=== PATIENT | male | born 1995 | race Hispanic/Latino ===

== ENCOUNTER 2019-08-01 18:28 | Observation (INO) | payer SELFPAY ==
[2019-08-01 19:16] LABS: Absolute Lymphocytes (CBC) 3.9 K/uL (0.7-4.9); Basophils % 1.1 % (0-1.3); Hematocrit 45.7 % (39.6-49.0); Lymphocytes % 44.3 % (15.3-44.8); MPV 11.4 fL (7.6-11.3); RBC Red Blood Cell Count 5.52 M/uL (4.33-5.43)
[2019-08-01 19:19] LABS: Protime INR 1.18
[2019-08-01 19:32] LABS: ALT/SGPT 160 U/L (12-78); AST/SGOT 76 U/L (15-37); Albumin 3.7 g/dL (3.4-5.0); Alkaline Phosphatase 100 U/L (45-117); BUN Blood Urea Nitrogen 14 mg/dL (7-18); Bicarbonate 27 mmol/L (21-32); Bilirubin Direct 0.2 mg/dL (0-0.2); Bilirubin Total 0.6 mg/dL (0.2-1.0); Glucose Level 342 mg/dL (74-106); Magnesium 1.8 mg/dL (1.8-2.4); NT PRO-BNP 30 pg/mL (<125); Potassium 3.5 mmol/L (3.5-5.1); Sodium Level 134 mmol/L (136-145); Troponin (Emerg Dept Use Only) < 0.02 ng/mL (0.0-0.045)
--- NOTE | 2019-08-01 20:02 | RAD REPORT ---
EXAM DESCRIPTION: [facility] Single View08/01/2019 7:14 pm CLINICAL HISTORY: Chest pain COMPARISON: none FINDINGS: The lungs appear clear of acute infiltrate. The heart is normal size IMPRESSION: No acute abnormalities displayed
[2019-08-01] MEDS ORDERED: NA CHLORIDE 0.9% 1,000 ML ONE (20:42)
--- NOTE | 2019-08-01 20:58 | RAD REPORT ---
EXAM DESCRIPTION: CT - Chest For Pe Angio - 08/01/2019 8:41 pm CLINICAL HISTORY: Chest pain COMPARISON: None. TECHNIQUE: Dynamically enhanced axial 3 mm thick images of the chest were obtained during administra tion of <100> mL Isovue 370 IV contrast. Coronal and oblique reconstruction images were generated and reviewed. Exam utilizes a protocol for optimal evaluation of pulmonary arterial tree. Maximum intensity projections 3D imaging was utilized All CT scans are performed using dose optimization technique as appropriate and may include automated exposure control or mA/KV adjustment according to patient size. FINDINGS: A pulmonary embolus is not seen. A thoracic aortic aneurysm is not noted. A pleural effusion is not seen. A pericardial effusion is not seen. A lung consolidation is not present. Fatty liver IMPRESSION: Negative for a pulmonary embolism.
[2019-08-01 21:09] LABS: Blood Morphology Comment NOT SEEN (NOT SEEN); Platelet Estimate DECR; Urine White Blood Cell Casts OK
--- NOTE | 2019-08-01 21:12 | ER ---
Nurse's Notes [facility] Name: Carroll Johnson Age: 24 yrs Sex: Male : 1995 Arrival Date: 08/01/2019 Time: 18:33 Bed 4 Private MD: None, None Diagnosis: Tachycardia, unspecified Presentation: 08/01 18:35 Presenting complaint: Patient states: tonsils swollen and then started having chest sv pressure, bilateral arm numbness since Sunday. Transition of care: patient was not received from another setting of care. Onset of symptoms was July 28, 2019. Risk Assessment: Do you want to hurt yourself or someone else? Patient reports no desire to harm self or others. Initial Sepsis Screen: Does the patient meet any 2 criteria? No. Patient's initial sepsis screen is negative. Does the patient have a suspected source of infection? No. Patient's initial sepsis screen is negative. Care prior to arrival: None. 18:35 Method Of Arrival: Ambulatory sv 18:35 Acuity: KURT 2 sv Historical: - Allergies: 18:37 No Known Allergies; sv - PMHx: 18:37 Diabetes - NIDDM; sv - PSHx: 18:37 Hernia repair; sv - Immunization history:: Adult Immunizations up to date. - Social history:: Smoking status: unknown. - Ebola Screening: : Patient negative for fever greater than or equal to 101.5 degrees Fahrenheit, and additional compatible Ebola Virus Disease symptoms. Screenin:08 Abuse screen: Denies threats or abuse. Denies injuries from another. Nutritional aj1 screening: No deficits noted. Tuberculosis screening: No symptoms or risk factors identified. 19:09 Fall Risk IV access (20 points). Ambulatory Aid- None/Bed Rest/Nurse Assist (0 pts). jd3 Gait- Normal/Bed Rest/Wheelchair (0 pts) Mental Status- Oriented to own ability (0 pts). Total Nickerson Fall Scale indicates No Risk (0-24 pts). Assessment: 18:45 General: Appears in no apparent distress. comfortable, Behavior is calm, cooperative, aj1 appropriate for age. Pain: Complains of pain in chest Pain does not radiate. Pain currently is 4 out of 10 on a pain scale. Pain began 4 days ago. Neuro: Level of Consciousness is awake, alert, obeys commands, Oriented to person, place, time, situation, [place] are equal bilaterally Moves all extremities. Full function Speech is normal, Facial symmetry appears normal. Cardiovascular: Reports chest pain, Heart tones S1 S2 present Patient's skin is warm and dry. Rhythm is sinus tachycardia. Respiratory: Airway is patent Respiratory effort is even, unlabored, Respiratory pattern is regular, symmetrical, Breath sounds are clear bilaterally. GI: No signs and/or symptoms were reported involving the gastrointestinal system. : No signs and/or symptoms were reported regarding the genitourinary system. EENT: Reports sore that, and that is tonsils were swollen on Sunday and are still swollen, but they feel less swollen than they were previously. . Derm: No signs and/or symptoms reported regarding the dermatologic system. Skin is pink, warm \T\ dry. normal. Musculoskeletal: No signs and/or symptoms reported regarding the musculoskeletal system. Circulation, motion, and sensation intact. 19:23 General: Appears in no apparent distress. comfortable, Behavior is calm, cooperative, jd3 appropriate for age. Pain: Complains of pain in chest Pain does not radiate. Quality of pain is described as pressure, Pain began 4 days ago. Neuro: Level of Consciousness is awake, alert, obeys commands, Oriented to person, place, time, situation. Cardiovascular: Heart tones S1 S2 present Capillary refill < 3 seconds Patient's skin is warm and dry. Rhythm is sinus tachycardia. Respiratory: Airway is patent Respiratory effort is even, unlabored, Respiratory pattern is regular, symmetrical, Breath sounds are clear bilaterally. Denies cough, shortness of breath. GI: No signs and/or symptoms were reported involving the gastrointestinal system. Patient currently denies diarrhea, nausea, vomiting. : Reports dark colored urine. EENT: Reports sore throat. Derm: Skin is intact, Skin is dry, Skin is normal, Skin temperature is warm. Musculoskeletal: Circulation, motion, and sensation intact. Range of motion: intact in all extremities. 20:39 Reassessment: Patient appears in no apparent distress at this time. No changes from jd3 previously documented assessment. Patient and/or family updated on plan of care and expected duration. Pain level reassessed. Patient is alert, oriented x 3, equal unlabored respirations, skin warm/dry/pink. 20:45 Reassessment: Pt stood up to urinate. Became diaphoretic, short of breath, and jb4 tachycardic with a heart rate of 158. Pt assisted back in bed. Instructed not to stand up. Provider notified. Pt taken to CT. 22:27 Reassessment: Patient appears in no apparent distress at this time. Patient and/or jd3 family updated on plan of care and expected duration. Pain level reassessed. Patient is alert, oriented x 3, equal unlabored respirations, skin warm/dry/pink. Patient states feeling better. 23:41 Reassessment: Patient appears in no apparent distress at this time. No changes from jd3 previously documented assessment. Patient and/or family updated on plan of care and expected duration. Pain level reassessed. Patient is alert, oriented x 3, equal unlabored respirations, skin warm/dry/pink. Vital Signs: 18:37 BP 142 / 93; Pulse 122; Resp 20; Temp 97; Pulse Ox 100% ; Weight 127.01 kg; Height 5 sv ft. 11 in. (180.34 cm); 18:45 BP 132 / 90; Pulse 101; Resp 18; Pulse Ox 98% on R/A; aj1 19:27 BP 132 / 90; Pulse 112; Resp 19 S; Pulse Ox 98% on R/A; jd3 20:40 BP 148 / 98; Pulse 97; Resp 19 S; Pulse Ox 97% on R/A; jd3 22:26 BP 126 / 77; Pulse 90; Resp 19 S; Pulse Ox 97% on R/A; jd3 18:37 Body Mass Index 39.05 (127.01 kg, 180.34 cm) sv ED Course: 18:33 Patient arrived in ED. mr 18:34 None, None is Private Physician. mr 18:36 Triage completed. sv 18:37 Arm band placed on. sv 18:44 Heidi Harman, RN is Primary Nurse. aj1 18:45 Master Sheldon PA is PHCP. [facility] 18:45 Tutu Treviño MD is Attending Physician. m 18:46 EKG done, by ED staff, reviewed by Tutu Treviño MD. ms 19:04 Inserted saline lock: 20 gauge in right antecubital area, using aseptic technique. jd3 Blood collected. started by Judith nursing education consultant with supervision. 19:08 Patient has correct armband on for positive identification. Bed in low position. Call aj1 light in reach. Side rails up X 1. media monitor on. Pulse ox on. NIBP on. 19:08 No provider procedures requiring assistance completed. Patient maintains SpO2 aj1 saturation greater than 95% on room air. 19:15 XRAY Chest (1 view) In Process Unspecified. EDMS 20:42 CT Chest For PE Angio In Process Unspecified. EDMS 21:10 Blanco Alvarez MD is Hospitalizing Provider. jmm 22:39 Patient admitted, IV remains in place. jd3 Administered Medications: 20:47 Drug: NS 0.9% 1000 ml Route: IV; Rate: 1 bolus; Site: right antecubital; jd3 22:40 Follow up: Response: No adverse reaction; IV Status: Completed infusion; IV Intake: jd3 1000ml Intake: 22:40 IV: 1000ml; Total: 1000ml. jd3 Outcome: 21:11 Decision to Hospitalize by Provider. jm 22:37 Admitted to Tele accompanied by tech, via wheelchair, room 426, with chart, Report jd3 called to Mayte CHOUDHARY 22:37 Condition: stable 22:37 Instructed on the need for admit, Demonstrated understanding of instructions. 23:42 Patient left the ED. jd3 Signatures: Dispatcher [employer] EDMS Heidi Harman RN RN Suzi Hoffman, RN Master Lopez PA PA jmm Rivera, Mary mr Ji, Yunier Padilla ms, RN RN jb4 Andrea De Jesus RN RN jd3 Corrections: (The following items were deleted from the chart) 18:37 18:35 Acuity: KURT 3 sv sv
--- NOTE | 2019-08-01 21:12 | EDPHYS ---
Physician Documentation [facility] Name: Carroll Johnson Age: 24 yrs Sex: Male : 1995 Arrival Date: 08/01/2019 Time: 18:33 Bed 4 Private MD: None, None ED Physician Tutu Treviño HPI: 08/01 18:47 This 24 yrs old Male presents to ER via Ambulatory with complaints of Chest jmm Pressure, Numbness Of Arm. 18:47 The patient or guardian reports chest pain that is located primarily in the substernal jmm area. The pain radiates to both arms. Associated signs and symptoms: Pertinent positives: cough, shortness of breath. The chest pain is described as a pressure. Duration: The patient or guardian reports multiple episodes, that are intermittent. Modifying factors: The symptoms are alleviated by nothing. the symptoms are aggravated by nothing. This is a 24 year old male with a history of dm that presents to the ED with complaints of chest pressure beginning this past Sunday which has been intermittent. Symptoms began to worsen with radiation of pain earlier today. Patient also complains of sore throat and cough beginning today. . Historical: - Allergies: 18:37 No Known Allergies; sv - PMHx: 18:37 Diabetes - NIDDM; sv - PSHx: 18:37 Hernia repair; sv - Immunization history:: Adult Immunizations up to date. - Social history:: Smoking status: unknown. - Ebola Screening: : Patient negative for fever greater than or equal to 101.5 degrees Fahrenheit, and additional compatible Ebola Virus Disease symptoms. ROS: 18:47 Neck: Negative for injury, pain, and swelling. jmm 18:47 Abdomen/GI: Negative for abdominal pain, nausea, vomiting, diarrhea, and constipation, Back: Negative for injury and pain, : Negative for injury, bleeding, discharge, and swelling. 18:47 Constitutional: Positive for body aches, chills. 18:47 ENT: Positive for sore throat. 18:47 ENT: Positive for 18:47 Cardiovascular: Positive for chest pain. 18:47 Respiratory: Positive for shortness of breath. 18:47 All other systems are negative. Exam: 18:47 Constitutional: This is a well developed, well nourished patient who is awake, alert, jmm and in no acute distress. Head/Face: atraumatic. Eyes: EOMI, no conjunctival erythema appreciated 18:47 Neck: Trachea midline, Supple Chest/axilla: Normal chest wall appearance and motion. 18:47 Respiratory: Normal respirations, no respiratory distress appreciated Abdomen/GI: Non distended, soft Back: Normal ROM Skin: General appearance color normal MS/ Extremity: Moves all extremities, no obvious deformities appreciated, no edema noted to the lower extremities Neuro: Awake and alert, normal gait Psych: Behavior is normal, Mood is normal, Patient is cooperative and pleasant 18:47 ENT: Posterior pharynx: erythema, that is moderate. 18:47 Cardiovascular: Rate: normal, Rhythm: regular, Heart sounds: normal. Vital Signs: 18:37 BP 142 / 93; Pulse 122; Resp 20; Temp 97; Pulse Ox 100% ; Weight 127.01 kg; Height 5 sv ft. 11 in. (180.34 cm); 18:45 BP 132 / 90; Pulse 101; Resp 18; Pulse Ox 98% on R/A; aj1 19:27 BP 132 / 90; Pulse 112; Resp 19 S; Pulse Ox 98% on R/A; jd3 20:40 BP 148 / 98; Pulse 97; Resp 19 S; Pulse Ox 97% on R/A; jd3 22:26 BP 126 / 77; Pulse 90; Resp 19 S; Pulse Ox 97% on R/A; jd3 18:37 Body Mass Index 39.05 (127.01 kg, 180.34 cm) sv MDM: 18:55 Patient medically screened. [facility] 21:09 Data reviewed: vital signs, nurses notes. Counseling: I had a detailed discussion with kane the patient and/or guardian regarding: the historical points, exam findings, and any diagnostic results supporting the discharge/admit diagnosis, lab results, radiology results, the need for further work-up and treatment in the hospital. ED course: Patient developed a p[presyncopal episode along with tachycardia upon standing. CTA is negative. Will admit for further observation. I discussed the patient with Dr. Alvarez whom accepted admission. . 08/01 18:47 Order name: Basic Metabolic Panel; Complete Time: 19:51 aj1 08/01 18:47 Order name: CBC with Diff aj1 08/01 18:47 Order name: LFT's; Complete Time: 19:51 aj1 08/01 18:47 Order name: Magnesium; Complete Time: 19:51 [facility] 08/01 18:47 Order name: NT PRO-BNP; Complete Time: 19:51 [facility] 08/01 18:47 Order name: PT-INR; Complete Time: 19:51 [facility] 08/01 18:47 Order name: Troponin (emerg Dept Use Only); Complete Time: 19:51 [facility] 08/01 18:56 Order name: Strep; Complete Time: 19:51 [facility] 08/01 18:56 Order name: Flu; Complete Time: 19:51 [facility] 08/01 19:52 Order name: Throat Culture [facility] 08/01 21:08 Order name: TSH [facility] 08/01 21:09 Order name: CBC Smear Scan [facility] 08/01 21:42 Order name: Comprehensive Metabolic Panel [facility] 08/01 21:42 Order name: Comprehensive Metabolic Panel [facility] 08/01 18:47 Order name: XRAY Chest (1 view); Complete Time: 20:07 [facility] 08/01 18:47 Order name: EKG; Complete Time: 18:48 [facility] 08/01 18:47 Order name: Cardiac monitoring; Complete Time: 18:47 [facility] 08/01 20:12 Order name: CT Chest For PE Angio; Complete Time: 21:02 [facility] 08/01 21:42 Order name: CONS Pharmacy Consult [facility] 08/01 21:42 Order name: Heart Healthy [facility] 08/01 21:42 Order name: T4 Free [facility] 08/01 21:42 Order name: T4 Free [facility] 08/01 21:42 Order name: Troponin I [facility] 08/01 21:42 Order name: Troponin I [facility] 08/01 21:42 Order name: Troponin I [facility] 08/01 21:43 Order name: EKG Electrocardiogram [facility] 08/01 21:43 Order name: EKG Electrocardiogram [facility] 08/01 21:43 Order name: CBC with Automated Diff [facility] 08/01 21:43 Order name: CBC with Automated Diff [facility] 08/01 18:47 Order name: EKG - Nurse/Tech; Complete Time: 18:48 [facility] 08/01 18:47 Order name: IV Saline Lock; Complete Time: 19:10 [facility] 08/01 18:47 Order name: Labs collected and sent; Complete Time: 19:10 [facility] 08/01 18:47 Order name: O2 Per Protocol; Complete Time: 18:48 [facility] 08/01 18:47 Order name: O2 Sat Monitoring; Complete Time: 18:48 Administered Medications: 20:47 Drug: NS 0.9% 1000 ml Route: IV; Rate: 1 bolus; Site: right antecubital; jd3 22:40 Follow up: Response: No adverse reaction; IV Status: Completed infusion; IV Intake: jd3 1000ml Disposition: 08/01/19 21:11 Hospitalization ordered by Blanco Alvarez for Observation. Preliminary diagnosis is Tachycardia, unspecified. - Bed requested for Telemetry/MedSurg (observation). - Status is Observation. jd3 - Condition is Stable. - Problem is new. - Symptoms are unchanged. UTI on Admission? No Addendum: 08/04/2019 08:31 Co-signature as Attending Physician, Tutu Treviño MD I agree with the assessment and k dr plan of care. Signatures: Dispatcher [employer] EDHeidi Beard RN RN aj1 Suzi Hoyos RN KENRICK Caty Sharma RN RN Tutu Treviño MD MD [facility] Master Sheldon PA PA Andrea Kidd RN RN jd3 Corrections: (The following items were deleted from the chart) 08/01 21:57 21:11 Hospitalization Ordered by Blanco Alvarez MD for Observation. Preliminary mw diagnosis is Tachycardia, unspecified. Bed requested for Telemetry/MedSurg (observation). Status is Observation. Condition is Stable. Problem is new. Symptoms are unchanged. UTI on Admission? No. [facility] 23:42 21:57 08/01/2019 21:11 Hospitalization Ordered by Blanco Alvarez MD for Observation. jd3 Preliminary diagnosis is Tachycardia, unspecified. Bed requested for Telemetry/MedSurg (observation). Status is Observation. Condition is Stable. Problem is new. Symptoms are unchanged. UTI on Admission? No. mw
[2019-08-01] MEDS ORDERED: ONDANSETRON 4 MG/2 ML VIAL IV PRN (21:38)
[2019-08-01] MEDS ORDERED: ACETAMINOPHEN 500 MG TAB PO PRN (21:38)
[2019-08-01] MEDS ORDERED: MORPHINE 2 MG/ML SYR IV PRN (21:38)
[2019-08-02 00:07] VITALS: BMI 39.0
[2019-08-02] MEDS: NA CHLORIDE 0.9% 1,000 ML IV SCH ×2 (00:21→08:00)
[2019-08-02 04:55] LABS: Absolute Lymphocytes (CBC) 4.2 K/uL (0.7-4.9); Basophils % 1.3 % (0-1.3); Hematocrit 41.9 % (39.6-49.0); Lymphocytes % 48.8 % (15.3-44.8); MPV 12.4 fL (7.6-11.3); RBC Red Blood Cell Count 5.04 M/uL (4.33-5.43)
[2019-08-02 05:09] LABS: ALT/SGPT 136 U/L (12-78); AST/SGOT 61 U/L (15-37); Albumin 3.1 g/dL (3.4-5.0); Alkaline Phosphatase 79 U/L (45-117); BUN Blood Urea Nitrogen 12 mg/dL (7-18); Bicarbonate 27 mmol/L (21-32); Bilirubin Total 0.5 mg/dL (0.2-1.0); Glucose Level 225 mg/dL (74-106); Potassium 3.9 mmol/L (3.5-5.1); Protein, Total 6.9 g/dL (6.4-8.2); Sodium Level 139 mmol/L (136-145)
[2019-08-02] MEDS ORDERED: METOPROLOL TAR 25 MG TAB PO SCH (06:00)
--- NOTE | 2019-08-02 07:18 | P.HP ---
Certification for Inpatient Patient admitted to: Observation With expected LOS: <2 Midnights Patient will require the following post-hospital care: None Practitioner: I am a practitioner with admitting privileges, knowledge of patient current condition, hospital course, and medical plan of care. Services: Services provided to patient in accordance with Admission requirements found in Title 42 Section 412.3 of the Code of Federal Regulations Patient History Date of Service: 08/01/19 Reason for admission: Near syncope/sinus tachycardia/poorly-controlled diabetes History of Present Illness: Patient is a 24-year-old gentleman who came into the hospital with lightheadedness. He was also having chest pressure with radiation down both arms. His EKG did not show any abnormalities. He does have elevated blood sugars on arrival. He said they were in the 400s. He has not really been taking good care of his blood sugars. He urinates frequently any remains thirsty all the time. He states his urine has also been dark. He really came into the hospital because he felt lightheaded. This has resolved as well after getting IV hydration. The did multiple diagnostic studies in the emergency room. His CT PE protocol was negative. Troponins were negative. Thyroid studies were negative. His blood sugar was over 300 in the ER. Urine analysis was pending. At this time he will be admitted to the hospital as is heart rate is also elevated. His heart rate was was in the 120s. After hydration he has come down into the low 100s. He will be admitted for observation. Allergies No Known Allergies Allergy (Verified 08/02/19 00:57) Home Medications: Metformin HCl 1 tab PO BID 08/02/19 - Past Medical/Surgical History Has patient received pneumonia vaccine in the past: No Diabetic: Yes -: Type 2 diabetes -: hernia repair - Family History Father Family History: Reviewed- Non-Contributory - Social History Smoking Status: Current some day smoker Alcohol use: Yes CD- Drugs: No Caffeine use: Yes Place of Residence: Home Review of Systems 10-point ROS is otherwise unremarkable Physical Examination - Vital Signs Temperature: 97.4 F Blood Pressure: 133/78 Pulse: 82 Respirations: 18 Pulse Ox (%): 97 - Physical Exam General: Alert, In no apparent distress, Oriented x3 HEENT: Atraumatic, PERRLA, Mucous membr. moist/pink, EOMI, Sclerae nonicteric Neck: Supple, 2+ carotid pulse no bruit, No LAD, Without JVD or thyroid abnormality Respiratory: Clear to auscultation bilaterally, Normal air movement Cardiovascular: Regular rate/rhythm, Normal S1 S2, No murmurs Gastrointestinal: Normal bowel sounds, Soft and benign, Non-distended, No tenderness Musculoskeletal: No clubbing, No swelling, No tenderness Integumentary: No rashes Neurological: Normal gait, Normal speech, Normal strength at 5/5 x4 extr, Normal tone, Sensation intact, Cranial nerves 3-12 intact, Normal affect Lymphatics: No axilla or inguinal lymphadenopathy - Studies Laboratory Data (last 24 hrs) 08/01/19 19:04: PT 13.8 H, INR 1.18 08/01/19 19:04: WBC 8.7, Hgb 15.8, Hct 45.7, Plt Count 125 L 08/01/19 19:04: Sodium 134 L, Potassium 3.5, BUN 14, Creatinine 0.97, Glucose 342 H, Magnesium 1.8, Total Bilirubin 0.6, AST 76 H, ALT 160 H, Alkaline Phosphatase 100 Microbiology Data (last 24 hrs): 08/01/19 19:02 Throat Group A Streptococcus Rapid Screen - Final 08/01/19 19:02 Nasopharnyx Influenza Type A Antigen Screen - Final 08/01/19 19:02 Nasopharnyx Influenza Type B Antigen Screen - Final Assessment & Plan - Problems (Diagnosis) (1) Near syncope Current Visit: Yes Status: Acute (2) Chest pain, rule out acute myocardial infarction Current Visit: Yes Status: Acute (3) Tachycardia Current Visit: Yes Status: Acute (4) Poorly controlled diabetes mellitus Current Visit: Yes Status: Acute (5) Thrombocytopenia Current Visit: Yes Status: Acute - Plan Plan: 1. Continue with aggressive IV hydration and strict blood sugar control. He probably got dehydrated from is poorly controlled blood sugars which led to his lightheadedness. Will do serial troponins and EKG as well. Will check thyroid studies. A1c is pending as well. If his labs come back unremarkable he should be stable for discharge. Will ambulate him and check orthostatics prior to discharge. Spoke with his in their want to go to a wedding tomorrow afternoon. As long as his labs come back looking good and there is no abnormalities that I anticipate him being discharged hopefully around breakfast time. He will need to follow with his PCP in 1-2 weeks. He needs to maintain strict blood sugar control. He needs to refrain from diabetic meds then may interfere with his elevated LFTs. He does have peer to have a fatty liver. This may be contributing to his thrombocytopenia. Patient will need close outpatient follow-up going forward. Discharge Plan: Home Plan to discharge in: 24 Hours - Advance Directives Does patient have a Living Will: No Does patient have a Durable POA for Healthcare: No - Code Status/Comfort Care Code Status Assessed: Yes Code Status: Full Code Critical Care: No Time Spent Managing PTS Care (In Minutes): 40
--- NOTE | 2019-08-02 07:28 | P.DS ---
Discharge Date: 08/02/19 Disposition: ROUTINE DISCHARGE Discharge Condition: GOOD Reason for Admission: Near syncope/sinus tachycardia/poorly-controlled diabetes - Problems (1) Near syncope Current Visit: Yes Status: Acute (2) Chest pain, rule out acute myocardial infarction Current Visit: Yes Status: Acute (3) Tachycardia Current Visit: Yes Status: Acute (4) Poorly controlled diabetes mellitus Current Visit: Yes Status: Acute (5) Thrombocytopenia Current Visit: Yes Status: Acute Brief History of Present Illness: Patient is a 24-year-old gentleman who came into the hospital with lightheadedness. He was also having chest pressure with radiation down both arms. His EKG did not show any abnormalities. He does have elevated blood sugars on arrival. He said they were in the 400s. He has not really been taking good care of his blood sugars. He urinates frequently any remains thirsty all the time. He states his urine has also been dark. He really came into the hospital because he felt lightheaded. This has resolved as well after getting IV hydration. The did multiple diagnostic studies in the emergency room. His CT PE protocol was negative. Troponins were negative. Thyroid studies were negative. His blood sugar was over 300 in the ER. Urine analysis was pending. At this time he will be admitted to the hospital as is heart rate is also elevated. His heart rate was was in the 120s. After hydration he has come down into the low 100s. He will be admitted for observation. Hospital Course: Patient is feeling better. We do have some labs pending at this time. We have a hemoglobin A1c in the last troponin. His chest pain is resolved. His throat feels much better. Overall he feels much better after the hydration. His tachycardia has improved as well. At this time patient is stable for discharge pending his repeat troponins. He will need close outpatient follow-up for his diabetes and his new diagnosis of nonalcoholic steatohepatitis. Patient needs to be on a strict 1800 kilocalorie ADA diet as well as a low-fat diet going forward. Vital Signs/Physical Exam: Temp Pulse Resp BP Pulse Ox 97.4 F 82 18 133/78 97 08/02/19 07:20 08/02/19 07:20 08/02/19 07:20 08/02/19 07:20 08/02/19 07:20 General: Alert, In no apparent distress, Oriented x3 Laboratory Data at Discharge: WBC 8.5 K/uL (4.3-10.9) 08/02/19 04:13 Hgb 14.4 g/dL (13.6-17.9) 08/02/19 04:13 Hct 41.9 % (39.6-49.0) 08/02/19 04:13 Plt Count 122 K/uL (152-406) L 08/02/19 04:13 PT 13.8 SECONDS (9.5-12.5) H 08/01/19 19:04 INR 1.18 08/01/19 19:04 Sodium 139 mmol/L (136-145) 08/02/19 04:13 Potassium 3.9 mmol/L (3.5-5.1) 08/02/19 04:13 BUN 12 mg/dL (7-18) 08/02/19 04:13 Creatinine 0.79 mg/dL (0.55-1.3) 08/02/19 04:13 Glucose 225 mg/dL (74-106) H 08/02/19 04:13 Magnesium 1.8 mg/dL (1.8-2.4) 08/01/19 19:04 Total Bilirubin 0.5 mg/dL (0.2-1.0) 08/02/19 04:13 AST 61 U/L (15-37) H 08/02/19 04:13 ALT 136 U/L (12-78) H 08/02/19 04:13 Alkaline Phosphatase 79 U/L (45-117) 08/02/19 04:13 Troponin I < 0.02 ng/mL (0.0-0.045) 08/01/19 23:56 Home Medications: Metformin HCl 1 tab PO BID #60 tablet 08/02/19 New Medications: Metformin HCl 1 tab PO BID #60 tablet Patient Discharge Instructions: OK TO DC IV AND DC HOME if labs are unremarkable. FOLLOW-UP WITH PRIMARY CARE PROVIDER IN 1-2 WEEKS. RETURN TO THE ER IF symptoms worsen. CALL or TEXT DR. PEACOCK AT [phone] IF ANY QUESTIONS REGARDING HOSPITAL STAY. PLEASE CALL THE FLOOR AT [phone] IF ANY MEDICATION OR NURSING QUESTIONS. Diet: Low fat diet Activity: Ad ramila Time spent managing pt's care (in minutes): 30
[2019-08-02 09:50] VITALS: O2SAT 98
--- NOTE | 2019-08-02 12:30 | EKG ---
Test Date: 2019-08-01 Test Time: 18:43:34 [employer]: OZ MEASUREMENT RESULTS: Intervals: Rate: 103 WA: 142 QRSD: 106 QT: 406 QTc: 531 [place]: P: 35 WA: 142 QRS: 81 T: 4 INTERPRETIVE STATEMENTS: Sinus tachycardia Possible Anterior infarct, age undetermined Prolonged QT Abnormal ECG No previous ECG available for comparison Electronically Signed On 08-02-19 12:29:04 CDT by Moises Perez
[2019-08-02 12:31] VITALS: BP 128/75; TEMP 98.6
== END 2019-08-02 12:10 | disposition home or self-care (01) ==
LOC: ER 18:28 → ERHOLD 22:33 → 4TH 22:45
PROVIDERS: ADMIT Hospitalist; ATTEND Hospitalist
DX: R55 Syncope and collapse (principal); R07.9 Chest pain, unspecified; E11.9 Type 2 diabetes mellitus without complications; R00.0 Tachycardia, unspecified; D69.6 Thrombocytopenia, unspecified; F17.200 Nicotine dependence, unspecified, uncomplicated
CPT/HCPCS: 36415; 71045; 71275; 80048; 80053; 80076; 83036; 83735; 83880; 84439; 84443; 84484; 85025; 85610; 87070; 87081; 87804; 93005; 96360; 96361; 99285; G0378; J7030; Q9967